=== PATIENT | female | born 1990 | race American Indian/Alaskan Native ===

== ENCOUNTER 2017-03-11 19:42 | Emergency (ER) | payer SELFPAY ==
[2017-03-11 21:25] LABS: Basophils % (Auto) 1.2 % (0.0-1.8); Eosinophils % (Auto) 1.1 % (0.0-4.3); Hematocrit 31.1 % (30.3-42.9); Mean Corpuscular HGB Conc 32 % (30-34); Mean Corpuscular Hemoglobin 24 pg (28-32); Mean Corpuscular Volume 76 fl (79-97); Platelet Count 447 K/mm3 (140-440); Red Blood Count 4.11 M/mm3 (3.65-5.03); Red Cell Distribution Width 16.7 % (13.2-15.2); White Blood Count 5.5 K/mm3 (4.5-11.0)
[2017-03-12 00:30] LABS: Bilirubin,Urine NEG (Negative); Blood,Urine LG (Negative); Ketones,Urine TR mg/dL (Negative); Leukocyte Esterase,Urine SM (Negative); Mucus,Urine 3+ /HPF; Nitrite,Urine NEG (Negative); Urobilinogen,Urine < 2.0 mg/dL (<2.0)
[2017-03-12 00:43] LABS: RBC,Urine > 182.0 /HPF (0.0-6.0)
--- NOTE | 2017-03-12 02:35 | Emergency Department Report ---
ED Female HPI - General Chief complaint: Vaginal Bleeding Stated complaint: VAGINAL BLEEDING Time Seen by Provider: 03/12/17 01:05 Source: patient Mode of arrival: Ambulatory Limitations: No Limitations - History of Present Illness Initial comments: 26-year-old female with a past medical history of anemia heart murmur presents to the hospital complaining of vaginal bleeding a positive home test yesterday. Patient last menstrual cycle was 02/25/2017 but she has continued to bleed but a past 2 weeks. Bleeding is moderate with intermittent suprapubic cramping. No aggravating or alleviating factors reported. Pain rated a 4/10 in intensity. This is her third and she history one child and one . - Related Data Home Medications Medication Instructions Recorded Confirmed Last Taken No Known Home Medications [No 03/12/17 03/12/17 Unknown Reported Home Medications] Allergies Allergy/AdvReac Type Severity Reaction Status Date / Time No Known Allergies Allergy Verified 06/15/16 02:22 ED Review of Systems ROS: Stated complaint: VAGINAL BLEEDING Other details as noted in HPI Comment: All other systems reviewed and negative Other: Constitutional: No fevers chills Eyes: No eye pain visual changes ENT: No ear pain or throat pain Neck: Denies pain Respiratory: Denies cough wheezing shortness of breath Cardiovascular: Denies chest pain, palpitations, syncope GI: as perhpi : Denies dysuria Musculoskeletal: Denies back pain Skin: Denies rash, lesions, erythema Neurologic: Denies headache, numbness, weakness Psychiatric: Denies suicidal ideation, hallucinations ED Past Medical Hx - Past Medical History Previous Medical History?: Yes Additional medical history: Heart murmur/anemia - Surgical History Past Surgical History?: No - Social History Smoking Status: Current Every Day Smoker Substance Use Type: Alcohol, Marijuana - Medications Home Medications: Home Medications Medication Instructions Recorded Confirmed Last Taken Type No Known Home Medications [No 03/12/17 03/12/17 Unknown History Reported Home Medications] ED Physical Exam - General Limitations: No Limitations - Other Other exam information: General: No limitations, patient is alert in no acute distress Head exam: Atraumatic, normocephalic Eyes exam: Normal appearance ENT: Moist mucous membrane, normal oropharynx Neck exam: Normal inspection, full range of motion, no meningismus nontender Respiratory exam: Clear to auscultation bilateral, no wheezes, rales, crackles Cardiovascular: Normal rate and rhythm, normal heart sounds Abdomen: Soft, nondistended, and nontender, with normal bowel sounds, no rebound, or guarding : Declined Extremity: Full range of motion normal inspection no deformity Back: Normal Inspection, full range of motion, no tenderness Neurologic: Alert, oriented x3, cranial nerves intact, no motor or sensory deficit Psychiatric: normal affect, normal mood Skin: Warm, dry, intact ED Course Vital Signs 03/11/17 03/11/17 03/12/17 20:38 23:36 00:55 Temperature 98.6 F 98.1 F Pulse Rate 67 72 66 Respiratory 20 18 18 Rate Blood Pressure 122/75 121/70 Blood Pressure 110/91 [Left] O2 Sat by Pulse 100 100 100 Oximetry 03/12/17 03/12/17 03/12/17 00:56 01:01 01:53 Temperature 97.9 F Pulse Rate 80 Respiratory 16 18 Rate Blood Pressure 97/77 Blood Pressure 123/81 [Left] O2 Sat by Pulse 100 98 100 Oximetry ED Medical Decision Making - Lab Data Result diagrams: 03/11/17 21:07 Lab Results 03/11/17 03/11/17 03/11/17 Range/Units 21:07 21:07 21:12 WBC 5.5 (4.5-11.0) K/mm3 RBC 4.11 (3.65-5.03) M/mm3 Hgb 10.0 L (10.1-14.3) gm/dl Hct 31.1 (30.3-42.9) % MCV 76 L (79-97) fl MCH 24 L (28-32) pg MCHC 32 (30-34) % RDW 16.7 H (13.2-15.2) % Plt Count 447 H (140-440) K/mm3 Lymph % (Auto) 29.1 (13.4-35.0) % [place] % (Auto) 8.1 H (0.0-7.3) % Eos % (Auto) 1.1 (0.0-4.3) % Baso % (Auto) 1.2 (0.0-1.8) % Lymph # 1.6 (1.2-5.4) K/mm3 [place] # 0.4 (0.0-0.8) K/mm3 Eos # 0.1 (0.0-0.4) K/mm3 Baso # 0.1 (0.0-0.1) K/mm3 Seg Neutrophils % 60.5 (40.0-70.0) % Seg Neutrophils # 3.4 (1.8-7.7) K/mm3 HCG, Quant 211.2 H (0-4) mIU/mL Urine Color (Yellow) Urine Turbidity (Clear) Urine pH (5.0-7.0) Ur Specific [place] (1.003-1.030) Urine Protein (Negative) mg/dL Urine Glucose (UA) (Negative) mg/dL Urine Ketones (Negative) mg/dL Urine Blood (Negative) Urine Nitrite (Negative) Urine Bilirubin (Negative) Urine Urobilinogen (<2.0) mg/dL Ur Leukocyte Esterase (Negative) Urine WBC (Auto) (0.0-6.0) /HPF Urine RBC (Auto) (0.0-6.0) /HPF U Epithel Cells (Auto) (0-13.0) /HPF Urine Mucus /HPF Blood Type O POSITIVE Antibody Screen Negative 03/11/17 Range/Units 23:33 WBC (4.5-11.0) K/mm3 RBC (3.65-5.03) M/mm3 Hgb (10.1-14.3) gm/dl Hct (30.3-42.9) % MCV (79-97) fl MCH (28-32) pg MCHC (30-34) % RDW (13.2-15.2) % Plt Count (140-440) K/mm3 Lymph % (Auto) (13.4-35.0) % [place] % (Auto) (0.0-7.3) % Eos % (Auto) (0.0-4.3) % Baso % (Auto) (0.0-1.8) % Lymph # (1.2-5.4) K/mm3 [place] # (0.0-0.8) K/mm3 Eos # (0.0-0.4) K/mm3 Baso # (0.0-0.1) K/mm3 Seg Neutrophils % (40.0-70.0) % Seg Neutrophils # (1.8-7.7) K/mm3 HCG, Quant (0-4) mIU/mL Urine Color Yellow (Yellow) Urine Turbidity Cloudy (Clear) Urine pH 6.0 (5.0-7.0) Ur Specific [place] 1.026 (1.003-1.030) Urine Protein 30 mg/dl (Negative) mg/dL Urine Glucose (UA) Neg (Negative) mg/dL Urine Ketones Tr (Negative) mg/dL Urine Blood Lg (Negative) Urine Nitrite Neg (Negative) Urine Bilirubin Neg (Negative) Urine Urobilinogen < 2.0 (<2.0) mg/dL Ur Leukocyte Esterase Sm (Negative) Urine WBC (Auto) 152.0 H (0.0-6.0) /HPF Urine RBC (Auto) > 182.0 (0.0-6.0) /HPF U Epithel Cells (Auto) 4.0 (0-13.0) /HPF Urine Mucus 3+ /HPF Blood Type Antibody Screen - Radiology Data Radiology results: report reviewed (transvag/pelvic ob us: no iup, normal us) - Medical Decision Making The type O+ therefore RhoGAM not required. Ultrasound does not show IUP however , hCG is very low 200s. The patient is most likely having a miscarriage, she will be informed to return within 2 days for repeat blood work to determine which direction hcg is trending - Differential Diagnosis miscarriage, ectopic , IUP, uterine fibroids, menorrhagia, anemia Critical Care Time: No Critical care attestation.: If time is entered above; I have spent that time in minutes in the direct care of this critically ill patient, excluding procedure time. ED Disposition Clinical Impression: Threatened in early Disposition: DISCHARGED TO HOME OR SELFCARE Is pt being admited?: No Does the pt Need Aspirin: No Condition: Stable Instructions: Threatened Miscarriage (ED) Additional Instructions: You are with vaginal bleeding. Today we do not see a baby on ultrasound. This could mean 3 different possibilities. 1. Your is very early and it is too early to see anything on ultrasound. 2. We are not seeing a because you are in your tubes. 3. You're having active miscarriage. To accurately diagnose the state of your you will need to follow-up in 2 days for repeat blood work in beta hCG/baby hormone testing so we can deterine if this number is increasing (still ) or decreasing (active miscarriage). You may follow-up with the CNC MACHINE PROGRAMMER office provider or return to the ER if you are unable to follow up with the clinic for repeat testing. In the meantime please return if you have worsening/severe pain, vaginal bleeding with greater than 1 pad per hour, or feel like you are going to pass out. Take Tylenol as needed for pain Referrals: KULWINDER ALBERTO MD [Staff Physician] - 2-3 Days Time of Disposition: 03:16
--- NOTE | 2017-03-12 02:49 | Ultrasound Report ---
FINAL REPORT PROCEDURE: US OB \T\lt; = 14 WEEKS FETUS TECHNIQUE: Real-time transabdominal sonography of the uterus, placenta, amniotic fluid, adnexa, and fetus was performed with image documentation. Measurements were obtained to determine age/size. M-mode Doppler was used to document heartbeat. CPT 52925 HISTORY: vag spotting, hcg 211 COMPARISON: No prior studies are available for comparison. FINDINGS: There is no intrauterine or ectopic . Uterus measures 7.5 x 4 x 4.9 centimeters. The endometrium is 7.9 millimeters in thickness. There is no endometrial fluid collection. Right ovary measures 2.2 x 1.8 x 1.5 centimeters. Left ovary measures 3.1 x 1.5 x 1.7 centimeters. There is no ovarian mass or torsion. There is no free pelvic fluid. IMPRESSION: Normal uterus and ovaries. There is no evidence of intrauterine or ectopic .
--- NOTE | 2017-03-12 02:49 | Ultrasound Report ---
FINAL REPORT PROCEDURE: US OB \T\lt; = 14 WEEKS FETUS TECHNIQUE: Real-time transvaginal sonography of the uterus, placenta, amniotic fluid, adnexa, and fetus was performed with image documentation. Measurements were obtained to determine age/size. M-mode Doppler was used to document heartbeat. HISTORY: vag spotting, hcg 211 COMPARISON: No prior studies are available for comparison. FINDINGS: There is no intrauterine or ectopic . Uterus measures 7.5 x 4 x 4.9 centimeters. The endometrium is 7.9 millimeters in thickness. There is no endometrial fluid collection. Right ovary measures 2.2 x 1.8 x 1.5 centimeters. Left ovary measures 3.1 x 1.5 x 1.7 centimeters. There is no ovarian mass or torsion. There is no free pelvic fluid. IMPRESSION: Normal uterus and ovaries. There is no evidence of intrauterine or ectopic .
[2017-03-12 03:46] VITALS: BP 123/86
== END 2017-03-12 03:49 | disposition home or self-care (01) ==
LOC: ED 19:42
DX: O20.0 Threatened abortion (principal); F17.200 Nicotine dependence, unspecified, uncomplicated; F12.10 Cannabis abuse, uncomplicated
CPT/HCPCS: 36415; 76801; 76817; 81001; 84702; 85025; 86850; 86900; 86901

== ENCOUNTER 2017-10-17 17:07 | Emergency (ER) | payer MEDICAID ==
--- NOTE | 2017-10-17 17:38 | Emergency Department Report ---
Chief Complaint: Abdominal Pain Stated Complaint: PREG,ABDOMINAL PAIN Time Seen by Provider: 10/17/17 17:38 - HPI History of Present Illness: Patient here reports that she is having abdominal pain and she is 16 weeks . She said that it started 3 days ago with episodes of nausea vomiting and diarrhea. She said abdominal pain is all over her abdomen and feels like it 's sp. She does care with Dr. Moore at [facility]. She says she had a ultrasound in August. She said they told her that everything was okay with the baby. Denies any fever or chills. Denies any vaginal bleeding or discharge. She is on iron pill. Last visit was per patient. Denies any urinary burning frequency or urgency - ROS Review of Systems: All systems are negative unless stated in HPI above - Exam Vital Signs: Vital Signs 10/17/17 17:13 Temperature 98.3 F Pulse Rate 77 Respiratory 16 Rate Blood Pressure 107/65 O2 Sat by Pulse 99 Oximetry Physical Exam: Gen.: S is a 27-year-old female well-nourished well-developed in no acute distress. Abdomen: Tender to palpate, no guarding or rebound tenderness. Normal bowel sounds in all quadrants. MSE screening note: Focused history and physical exam performed. Due to findings the following was ordered: ED Medical Decision Making - Medical Decision Making MDM: Patient screened by provider in triage area. Appropriate protocol initiated and patient to be seen in main ED by Dr. DUMONT Disposition for MSE Condition: Stable Instructions: Abdominal Pain (ED)
[2017-10-17 18:26] LABS: Alanine Aminotransferase 24 units/L (7-56); Albumin 3.7 g/dL (3.9-5); Albumin/Globulin Ratio 1.1 %; Alkaline Phosphatase 60 units/L (35-129); Anion Gap 19 mmol/L; BUN/Creatinine Ratio 15; Blood Urea Nitrogen 6 mg/dL (7-17); Calcium 8.4 mg/dL (8.4-10.2); Carbon Dioxide 20 mmol/L (22-30); Chloride 99.8 mmol/L (98-107); Glucose 81 mg/dL (65-100); Lipase 11 units/L (13-60); Sodium 136 mmol/L (137-145); Total Protein 7.2 g/dL (6.3-8.2)
[2017-10-17 18:35] LABS: Hematocrit 33.5 % (30.3-42.9); Hemoglobin 10.9 gm/dl (10.1-14.3); Mean Corpuscular HGB Conc 33 % (30-34); Mean Corpuscular Volume 75 fl (79-97); Platelet Count 354 K/mm3 (140-440); Red Blood Count 4.46 M/mm3 (3.65-5.03); White Blood Count 4.3 K/mm3 (4.5-11.0)
[2017-10-17 18:40] LABS: Mean Corpuscular Hemoglobin 25 pg (28-32); Red Cell Distribution Width 21.6 % (13.2-15.2)
[2017-10-17 20:10] LABS: Blastocytes % (Manual) 0 %
[2017-10-17 20:11] LABS: Anisocytosis 1+; Basophils % (Manual) 0 % (0.0-1.8); Diff Status Complete; Elliptocytes Few; Microcytosis 1+; Platelet Estimate Consistent w Auto; Poikilocytosis Few
--- NOTE | 2017-10-17 20:21 | Ultrasound Report ---
FINAL REPORT PROCEDURE: US OB > = 14 WEEKS FETUS TECHNIQUE: Real-time transabdominal sonography of the uterus, placenta, amniotic fluid, adnexa, and fetus was performed with image documentation. Measurements were obtained to determine age/size. M-mode Doppler was used to document heartbeat. CPT 10916 HISTORY: abdominal pain and COMPARISON: March 12, 2017 FINDINGS: LMP June 21, 2017, corresponding to gestational age of 16 weeks 6 days and estimated due date March 28, 2018 GENERAL: IUP: Single living intrauterine . Position: Breech Placental position: Anterior, without previa. Amniotic fluid volume: Normal. MATERNAL: Uterus: Within normal limits. Cervical length: 3.4 cm. Internal Os: Closed. FETUS: Heart rate and rhythm: 158 BPM, Regular. MEASUREMENTS: BPD: 3.7 cm, 17 weeks 3 days HC: 13.8 cm, 17 weeks 1 day AC: 12.1 cm, 17 weeks 5 days FL: 2.6 cm, 17 weeks 6 days Mean Gestational Age (composite criteria): 17 weeks 4 days Estimated Weight: 207 grams. Estimated Due Date (earliest scan): March 23, 2018 IMPRESSION: Single intrauterine gestation at 17 weeks 4 days. Estimated due date: March 23, 2018.
[2017-10-17 22:15] LABS: Bilirubin,Urine NEG (Negative); Blood,Urine NEG (Negative); Ketones,Urine NEG (Negative); Leukocyte Esterase,Urine NEG (Negative); Mucus,Urine 3+ /HPF; Nitrite,Urine NEG (Negative)
[2017-10-18] MEDS ORDERED: K-DUR PO ONE (00:49)
--- NOTE | 2017-10-18 01:19 | Emergency Department Report ---
HPI - General Chief Complaint: Abdominal Pain Time Seen by Provider: 10/17/17 17:38 - HPI HPI: This is a 27-year-old demented female presents to the emergency department with complaint of a three-day history of some lower abdominal pain, nausea, vomiting and diarrhea while . The patient thinks that she may have gotten food poisoning or something but is unsure. She says that her symptoms mostly all resolved by 8 AM this morning but she still has some nausea and has not eaten or drinking much since. She is unsure how far along she has but knows that she is as she missed her last menstrual cycle and followed up with an OB/ PRODUCT ANALYST, Dr. You at [facility]. She is on vitamins. Otherwise she has not taken anything for her symptoms prior to presentation. She is with one previous miscarriage. No recent travel or sick contacts at home. She has a past mental history of anemia. She is also on iron pills. She denies any vaginal bleeding, dysuria, vaginal discharge. No recent travel or sick contacts at home. ED Past Medical Hx - Past Medical History Previous Medical History?: Yes Additional medical history: Heart murmur/anemia, Vaginal delivery 08-23-2015 - Surgical History Past Surgical History?: No - Social History Smoking Status: Former Smoker Substance Use Type: Alcohol, Prescribed - Medications Home Medications: Home Medications Medication Instructions Recorded Confirmed Last Taken Type Doxylamine Succinate/Vit B6 1 each PO BID PRN #20 tablet. 10/18/17 Unknown Rx [Michelle Myers 10-10 mg Tablet] ED Review of Systems ROS: Stated complaint: PREG,ABDOMINAL PAIN Other details as noted in HPI Comment: All other systems reviewed and negative Constitutional: denies: chills, fever Eyes: denies: eye pain, eye discharge, vision change ENT: denies: ear pain, throat pain Respiratory: denies: cough, shortness of breath, wheezing Cardiovascular: denies: chest pain, palpitations Gastrointestinal: abdominal pain, nausea, vomiting, diarrhea Genitourinary: denies: urgency, dysuria, discharge Musculoskeletal: denies: back pain, joint swelling, arthralgia Skin: denies: rash, lesions Neurological: denies: headache, weakness, paresthesias Physical Exam - Physical Exam Vital Signs: Vital Signs 10/17/17 10/18/17 17:13 00:29 Temperature 98.3 F Pulse Rate 77 72 Respiratory 16 16 Rate Blood Pressure 107/65 Blood Pressure 101/60 [Right] O2 Sat by Pulse 99 100 Oximetry Physical Exam: GENERAL: The patient is well-developed well-nourished. HENT: Normocephalic. Atraumatic. Patient has moist mucous membranes. EYES: Extraocular motions are intact. Pupils equal reactive to light bilaterally. NECK: Supple. Trachea is midline. CHEST/LUNGS: Clear to auscultation. There is no respiratory distress noted. HEART/CARDIOVASCULAR: Regular. There is no tachycardia. There is no gallop rub or murmur. ABDOMEN: Abdomen is soft, nontender. Patient has normal bowel sounds. There appears to be a palpable gravid uterus a few semirigid below the umbilicus. SKIN: Skin is warm and dry. NEURO: The patient is awake, alert, and oriented. The patient is cooperative. The patient has no focal neurologic deficits. The patient has normal speech. MUSCULOSKELETAL: There is no tenderness or deformity. There is no limitation range of motion. There is no evidence of acute injury. ED Course Vital Signs 10/17/17 10/18/17 17:13 00:29 Temperature 98.3 F Pulse Rate 77 72 Respiratory 16 16 Rate Blood Pressure 107/65 Blood Pressure 101/60 [Right] O2 Sat by Pulse 99 100 Oximetry ED Medical Decision Making - Lab Data Result diagrams: 10/17/17 17:52 10/17/17 17:52 - Radiology Data Radiology results: report reviewed PROCEDURE: US OB gt; = 14 WEEKS FETUS TECHNIQUE: Real-time transabdominal sonography of the uterus, placenta, amniotic fluid, adnexa, and fetus was performed with image documentation. Measurements were obtained to determine age/size. M-mode Doppler was used to document heartbeat. CPT 61053 HISTORY: abdominal pain and COMPARISON: March 12, 2017 FINDINGS: LMP June 21, 2017, corresponding to gestational age of 16 weeks 6 days and estimated due date March 28, 2018 GENERAL: IUP: Single living intrauterine . Position: Breech Placental position: Anterior, without previa. Amniotic fluid volume: Normal. MATERNAL: Uterus: Within normal limits. Cervical length: 3.4 cm. Internal Os: Closed. FETUS: Heart rate and rhythm: 158 BPM, Regular. MEASUREMENTS: BPD: 3.7 cm, 17 weeks 3 days HC: 13.8 cm, 17 weeks 1 day AC: 12.1 cm, 17 weeks 5 days FL: 2.6 cm, 17 weeks 6 days Mean Gestational Age (composite criteria): 17 weeks 4 days Estimated Weight: 207 grams. Estimated Due Date (earliest scan): March 23, 2018 IMPRESSION: Single intrauterine gestation at 17 weeks 4 days. Estimated due date: March 23, 2018. Transcribed By: RUSTAM Dictated By: PATRICK RICHARDS MD Electronically Authenticated By: SINTIA - Medical Decision Making Patient's ultrasound shows a live at uterine at about 17 weeks. Labs are mostly unremarkable except for some hypokalemia that was replaced with potassium chloride. She does not appear to have any signs of dehydration. All the patient's symptoms that she complained of have resolved prior presentation. She has good follow-up for COMMERCIAL SALES DIRECTOR, is on vitamins and iron supplementation. Vital signs stable throughout her ED course. She appears safe for discharge home but has been encouraged to follow up with the COMMERCIAL SALES DIRECTOR. She will return to the ER with any worsening of her symptoms, development of vaginal bleeding, or any acute distress. - Differential Diagnosis , miscarriage, food poisoning, viral syndrome Critical Care Time: No Critical care attestation.: If time is entered above; I have spent that time in minutes in the direct care of this critically ill patient, excluding procedure time. ED Disposition Clinical Impression: , Nausea & vomiting, Abdominal pain Disposition: - TO HOME OR SELFCARE Is pt being admited?: No Condition: Good Instructions: (ED), Acute Nausea and Vomiting (ED), Abdominal Pain ( ED) Additional Instructions: Follow-up with your COMMERCIAL SALES DIRECTOR in the next few days. Continue with your vitamins and iron supplementation. I have prescribed for you a nausea medication called, Diclegis, that is safe in . Return to the emergency Department with any worsening of his symptoms, vaginal bleeding, sharp severe abdominal cramping pains, or any acute distress. Prescriptions: Doxylamine Succinate/Vit B6 [Michelle Myers 10-10 mg Tablet] 1 each PO BID PRN #20 tablet.dr VOGEL Reason: Nausea Referrals: PRIMARY CARE, [Primary Care Provider] - 3-5 Days [facility] [Outside] - 3-5 Days Forms: Work/School Release Form(ED) Time of Disposition: :20
[2017-10-18 02:58] VITALS: BP 117/67
== END 2017-10-18 03:02 | disposition home or self-care (01) ==
LOC: ED 17:07
DX: O21.0 Mild hyperemesis gravidarum (principal); R10.30 Lower abdominal pain, unspecified; Z3A.16 16 weeks gestation of pregnancy
CPT/HCPCS: 36415; 76805; 80053; 81001; 83690; 84702; 84703; 85007; 85025

== ENCOUNTER 2018-03-31 08:24 | Inpatient (IN) | payer MEDICAID ==
[2018-03-31 09:58] LABS: Hematocrit 32.7 % (30.3-42.9); Hemoglobin 10.9 gm/dl (10.1-14.3); Mean Corpuscular HGB Conc 33 % (30-34); Mean Corpuscular Volume 77 fl (79-97); Platelet Count 310 K/mm3 (140-440); Red Blood Count 4.24 M/mm3 (3.65-5.03); Red Cell Distribution Width 15.5 % (13.2-15.2)
[2018-03-31 09:59] LABS: Mean Corpuscular Hemoglobin 26 pg (28-32)
--- NOTE | 2018-03-31 11:27 | History and Physical Report ---
History of Present Illness Date of examination: 03/31/18 Date of admission: 03/31/18 08:24 Chief complaint: Induction of labor History of present illness: Pt is a 27yo BF EDC 03/22/18; EGA 41 2/7 weeks presents for induction of labor. She received care at [facility] since 11 weeks and care has been unremarkable. records are available and GBS is Positive. Past History Past Medical History: no pertinent history Past Surgical History: no surgical history Family/Genetic History: none Social history: no significant social history, single - Obstetrical History Expected Date of Delivery: 03/22/18 Actual Gestation: 41 Week(s) 2 Day(s) : 3 Medications and Allergies Allergies Allergy/AdvReac Type Severity Reaction Status Date / Time No Known Allergies Allergy Verified 06/15/16 02:22 Home Medications Medication Instructions Recorded Confirmed Last Taken Type Doxylamine Succinate/Vit B6 1 each PO BID PRN #20 tablet. 10/18/17 Unknown Rx [Michelle Myers 10-10 mg Tablet] Review of Systems All systems: negative - Vital Signs Vital signs: Vital Signs Pulse Pulse Ox 88 98 03/31/18 08:56 03/31/18 08:56 Temp Pulse Resp BP Pulse Ox 83 127/71 99 03/31/18 10:57 03/31/18 08:57 03/31/18 10:57 - Physical Exam Breasts: Positive: deferred Cardiovascular: Regular rate Lungs: Positive: Clear to auscultation Abdomen: Positive: normal appearance Genitourinary (Female): Positive: normal external genitalia Vagina: Positive: normal moisture Uterus: Positive: enlarged Extremities: Positive: normal - Obstetrical FHR: category 1 Uterine Contraction Monitor Mode: External Cervical Dilatation: 3 (per nurse) Cervical Effacement Percentage: 60 (per nurse) station: -3 Uterine Contraction Pattern: Absent Uterine Tone Measurement Phase: Contraction Results Result Diagrams: 03/31/18 09:00 Abnormal lab results 03/31/18 Range/Units 09:00 MCV 77 L (79-97) fl MCH 26 L (28-32) pg RDW 15.5 H (13.2-15.2) % All other labs normal. Assessment and Plan - Patient Problems (1) 41 weeks gestation of Onset Date: 03/31/18 Current Visit: Yes Status: Acute Plan to address problem: A: IUP @ 41 2/7 weeks Post dates induction of labor GBS + P: Admit to L&D for pitocin induction of labor IV Ampicillin
[2018-03-31] MEDS ORDERED: ZOFRAN IV PRN ×2 (11:31→18:21)
[2018-03-31] MEDS ORDERED: ePHEDrine SULFATE IV PRN (11:31)
[2018-03-31] MEDS ORDERED: NARCAN 0.4 MG/1 ML IV PRN (11:31)
[2018-03-31] MEDS ORDERED: BRETHINE SUB-Q PRN (11:31)
[2018-03-31] MEDS ORDERED: PHENERGAN PO PRN ×2 (11:31→18:21)
[2018-03-31] MEDS ORDERED: BRETHINE IVP PRN (11:31)
[2018-03-31] MEDS ORDERED: MINERAL OIL PO PRN (11:31)
[2018-03-31] MEDS ORDERED: STADOL IV PRN (11:31)
[2018-03-31] MEDS ORDERED: SUBLIMAZE IV PRN (11:31)
[2018-03-31] MEDS ORDERED: POLYCILLIN/NS 2 GM/100 ML 2 GM/100 ML BAG IV ONE (11:40)
[2018-03-31] MEDS ORDERED: PITOCin/NS 30 UNIT/500ML 30 UNITS/500 ML BAG IV SCH ×2 (12:00)
[2018-03-31] MEDS ORDERED: PITOCin/NS 20 UNIT/1000ML DRIP 20 UNITS/1,000 ML BAG IV SCH ×2 (12:00→19:00)
[2018-03-31] MEDS ORDERED: LACTATED RINGERS 1,000 ML IV SCH (12:00)
[2018-03-31] MEDS ORDERED: XYLOCAINE 2% INFILTRATI ONE (12:00)
[2018-03-31] MEDS ORDERED: AMPICILLIN/NS 1 GM/50 ML 1 GM/50 ML BAG IV SCH (15:33)
--- NOTE | 2018-03-31 18:17 | Procedure Note ---
OB Delivery Note - Delivery Date of Delivery: 03/31/18 Surgeon: PENNY ESPINOZA Estimated blood loss: 200cc - Vaginal Delivery presentation: vertex Delivery position: OA Intrapartum events: none Delivery induction: oxytocin Delivery augmentation: rupture of membranes Delivery monitor: external FHT, external uterine Route of delivery: Delivery placenta: spontaneous Delivery cord: 3 umbilical vessels Episiotomy: none Delivery laceration: none Anesthesia: none Delivery comments: Infant delivered OA and placed on Mom's chest for [id number] bonding and delayed cord clamping. - Infant A at 1 minute: 8 at 5 minutes: 9 Gender: Male ([id number])
[2018-03-31] MEDS ORDERED: TYLENOL PO PRN (18:21)
[2018-03-31] MEDS ORDERED: BENADRYL PO PRN (18:21)
[2018-03-31] MEDS ORDERED: TUCKS PAD TP PRN (18:21)
[2018-03-31] MEDS ORDERED: DULCOLAX PR PRN (18:21)
[2018-03-31] MEDS ORDERED: PHENERGAN PR PRN (18:21)
[2018-03-31] MEDS ORDERED: MILK OF MAGNESIA PO PRN (18:21)
[2018-03-31] MEDS ORDERED: LANSINOH TP PRN (18:21)
[2018-03-31] MEDS ORDERED: SODIUM CHLORIDE FLUSH SYRINGE 10 ML IV SCH (19:00)
[2018-03-31] MEDS: MOTRIN PO SCH (19:38)
[2018-03-31] MEDS: COLACE PO SCH (21:51)
[2018-03-31] MEDS: FEOSOL PO SCH (21:52)
[2018-03-31] MEDS: NORCO 5/325 PO PRN (21:52)
[2018-04-01] MEDS ORDERED: BOOSTRIX IM ONE (06:00)
[2018-04-01] MEDS: MOTRIN PO SCH ×4 (06:20→18:23)
[2018-04-01 07:47] LABS: Hematocrit 30.5 % (30.3-42.9); Hemoglobin 10.2 gm/dl (10.1-14.3)
[2018-04-01] MEDS: FEOSOL PO SCH ×2 (10:38→21:41)
[2018-04-01] MEDS: COLACE PO SCH ×2 (10:38→21:41)
[2018-04-01] MEDS: PRENATAL VITAMIN PO SCH (10:38)
--- NOTE | 2018-04-01 11:59 | Progress Note ---
Assessment and Plan - Patient Problems (1) 41 weeks gestation of Onset Date: 03/31/18 Current Visit: Yes Status: Resolved (2) (normal spontaneous vaginal delivery) Onset Date: 04/01/18 Current Visit: Yes Status: Resolved Plan to address problem: A: S/P - PPD #1 Doing well Asymptomatic anemia - stable P: May go home tomorrow. Subjective - Subjective Date of service: 04/01/18 Principal diagnosis: s/p - PPD #1 Interval history: Pt is feeling well without complaints. Bleeding improved. Patient reports: appetite normal, voiding normally, pain well controlled, ambulating normally [place]: doing well, nursing well Objective - Vital Signs Latest vital signs: Vital Signs Temp Pulse Resp BP BP Pulse Ox 04/01/18 08:12 97.9 F 86 20 104/67 99 04/01/18 04:15 98.0 F 72 20 132/73 04/01/18 00:00 98.2 F 81 20 122/76 03/31/18 17:23 78 95 03/31/18 17:20 67 82 L 03/31/18 17:18 79 100 03/31/18 17:13 86 100 03/31/18 17:08 81 100 03/31/18 17:03 89 100 03/31/18 16:58 85 100 03/31/18 16:53 82 100 03/31/18 16:48 87 100 03/31/18 16:46 79 50 L 03/31/18 16:43 80 100 03/31/18 16:38 87 100 03/31/18 14:59 85 100 03/31/18 14:54 83 100 03/31/18 14:49 81 100 03/31/18 14:44 88 100 03/31/18 14:39 87 100 03/31/18 14:38 51 L 85 03/31/18 14:32 88 83 L 03/31/18 14:28 73 89 03/31/18 14:23 89 89 03/31/18 14:19 83 100 03/31/18 14:14 80 98 03/31/18 14:09 86 96 03/31/18 14:04 77 95 03/31/18 14:03 80 94 03/31/18 13:59 85 99 03/31/18 13:54 78 99 03/31/18 13:49 81 98 03/31/18 13:44 79 97 03/31/18 13:39 79 98 03/31/18 13:34 80 100 03/31/18 13:29 77 98 03/31/18 13:24 84 98 03/31/18 13:19 84 98 03/31/18 13:14 104 H 81 L 03/31/18 13:08 84 98 03/31/18 13:03 80 98 03/31/18 12:55 83 95 03/31/18 12:52 78 94 03/31/18 12:50 77 96 03/31/18 12:45 83 98 03/31/18 12:40 81 119/74 98 Intake and Output 03/31/18 04/01/18 04/01/18 22:59 06:59 14:59 Output Total 450 900 Balance -450 -900 Output: Urine 450 900 Void 450 900 Other: Total, Output Amount 450 900 # Voids Void 1 Estimated Blood Loss 150 - Exam Cardiovascular: Present: Regular rate Lungs: Present: Clear to auscultation Abdomen: Present: normal appearance, soft Uterus: Present: normal, firm, fundal height below umbilicus Extremities: Present: normal - Labs Labs: Laboratory Tests 03/31/18 03/31/18 03/31/18 09:00 09:00 09:00 WBC 7.4 RBC 4.24 Hgb 10.9 Hct 32.7 MCV 77 L MCH 26 L MCHC 33 RDW 15.5 H Plt Count 310 RPR Nonreactive Blood Type O POSITIVE Antibody Screen Negative 04/01/18 07:17 WBC RBC Hgb 10.2 Hct 30.5 MCV MCH MCHC RDW Plt Count RPR Blood Type Antibody Screen
--- NOTE | 2018-04-01 12:02 | Discharge Summary ---
Providers - Providers Date of Admission: 03/31/18 08:24 Date of discharge: 04/02/18 Attending physician: PENNY ESPINOZA Primary care physician: PENNY ESPINOZA Hospitalization Reason for admission: induction of labor, IUP at term Delivery: Episiotomy: none Other procedures: none complications: none Discharge diagnosis: IUP at term delivered baby: male Hospital course: Unremarkable. Condition at discharge: Good Disposition: DC-01 TO HOME OR SELFCARE - Discharge Diagnoses (1) 41 weeks gestation of Status: Resolved (2) (normal spontaneous vaginal delivery) Status: Resolved Plan - Discharge Medications Prescriptions: Ferrous Sulfate [Feosol 325 MG tab] 325 mg PO BID #60 tablet Ibuprofen [Motrin 600 MG tab] 600 mg PO Q6HR #30 tablet Vit-Fe Fumar-FA [ Vitamin] 1 each PO QDAY #30 tablet - Provider Discharge Summary Activity: routine, no sex for 6 weeks, no heavy lifting 4 weeks, no strenuous exercise Diet: routine Instructions: routine Additional instructions: [] Smoking cessation referral if applicable(refer to patient education folder for contact #) [] Refer to [facility] Booklet Call your doctor immediately for: * Fever > 100.5 * Heavy vaginal bleeding ( >1 pad per hour) * Severe persistent headache * Shortness of breath * Reddened, hot, painful area to leg or breast * Drainage or odor from incision. * Keep incision clean and dry at all times and follow doctor's instructions regarding bathing/showering - Follow up plan Follow up: PENNY ESPINOZA MD [Primary Care Provider] - 6 Weeks
[2018-04-01] MEDS ORDERED: M-M-R II VACCINE SUB-Q ONE (18:21)
[2018-04-02] MEDS: NORCO 5/325 PO PRN (02:49)
[2018-04-02] MEDS: MOTRIN PO SCH ×3 (02:50→11:34)
[2018-04-02] MEDS: PRENATAL VITAMIN PO SCH (11:30)
[2018-04-02] MEDS: FEOSOL PO SCH (11:31)
[2018-04-02 17:43] VITALS: BP 120/64
== END 2018-04-02 17:00 | disposition home or self-care (01) | DRG 775 ==
LOC: LD 08:24 → OB 20:24
PROVIDERS: ADMIT Obstetrics & Gynecology; ATTEND Obstetrics & Gynecology
PROC: 10E0XZZ Delivery of Products of Conception, External Approach (ICD-10-PCS; principal; 2018-03-31)
PROC: 3E0234Z Introduction of Serum, Toxoid and Vaccine into Muscle, Percutaneous Approach (ICD-10-PCS; 2018-04-01)
PROC: 3E033VJ Introduction of Other Hormone into Peripheral Vein, Percutaneous Approach (ICD-10-PCS; 2018-04-01)
DX: O48.0 Post-term pregnancy (principal); O99.824 Streptococcus B carrier state complicating childbirth; D64.9 Anemia, unspecified; Z37.0 Single live birth; Z3A.41 41 weeks gestation of pregnancy; Z23 Encounter for immunization; O90.81 Anemia of the puerperium
CPT/HCPCS: 36415; 85014; 85018; 85027; 86592; 86850; 86900; 86901; A6250; J0290; J2590; J3010; J7120